=== PATIENT | female | born 1985 | race African-American/Black ===

== ENCOUNTER 2016-11-20 15:20 | Emergency (ER) | payer MEDICAID ==
[~2016-11-20] VITALS: Ht 160 cm; Wt 136.0 kg
[2016-11-20] MEDS ORDERED: KETOROLAC 60MG/2ML VIAL IM ONE (21:45)
[2016-11-21 00:45] VITALS: BP 138/84
== END 2016-11-21 01:48 | disposition home or self-care (01) ==
LOC: ER 21:00
DX: S83.91XA Sprain of unspecified site of right knee, initial encounter (principal); E78.00 Pure hypercholesterolemia, unspecified; E66.9 Obesity, unspecified; Z68.43 Body mass index [BMI] 50.0-59.9, adult; X50.1XXA Overexertion from prolonged static or awkward postures, initial encounter; Y93.89 Activity, other specified; Y92.89 Other specified places as the place of occurrence of the external cause
CPT/HCPCS: 73562; 93971; 96372; 99284; J1885; Z7610